=== PATIENT | female | born 1945 | race Caucasian/White ===

== ENCOUNTER → 2017-07-02 | Outpatient (CLI) | payer OTHER, MEDICARE | LOC: FIMAGING 12:25 | PROVIDERS: ATTEND Obstetrics & Gynecology Gynecology | DX: Z12.31 Encounter for screening mammogram for malignant neoplasm of breast (principal); Z80.3 Family history of malignant neoplasm of breast | CPT/HCPCS: G0202 ==

== ENCOUNTER 2018-03-26 11:47 | Emergency (ER) | payer OTHER, MEDICARE ==
--- NOTE | 2018-03-26 12:02 | CPEKG ---
Heart Rate: 82 RR Interval: 732 P-R Interval: 160 QRSD Interval: 104 QT Interval: 428 QTC Interval: 500 P [place]: 44 QRS [place]: 35 T Wave [place]: -29 EKG Severity - BORDERLINE ECG - EKG Impression: SINUS RHYTHM EKG Impression: BORDERLINE T ABNORMALITIES, INFERIOR LEADS EKG Impression: BORDERLINE PROLONGED QT INTERVAL Electronically Signed By: Naty Minor 26-Mar-2018 14:53:20
[2018-03-26 12:22] LABS: PLATELET COUNT 247 10^3/uL (150-400)
[2018-03-26] MEDS ORDERED: ONDANSETRON 4 MG/2 ML VIAL IVP ONE (12:40)
--- NOTE | 2018-03-26 12:44 | EDPHY ---
H & P Time Seen by Provider: 03/26/18 12:11 HPI/ROS: CHIEF COMPLAINT: Dizziness HISTORY OF PRESENT ILLNESS: 72-year-old female with a history of takotsubo syndrome presents with dizziness. She was in the yoga just prior to arrival, began to feel nauseated and dizzy. She then became diaphoretic and thought that she might faint. She laid down and eventually felt well enough to sit up and have something to drink. The dizziness has resolved. She continues to have mild nausea and abdominal cramping. She has had abdominal cramping over the last week and attributes it to irritable bowel syndrome. No chest pain or shortness of breath. REVIEW OF SYSTEMS: complete 10 point ROS negative except at noted in the HPI Past Medical/Surgical History: takotsubo syndrome 10 years ago, had chest pain and shortness of breath at that time Social History: No recent alcohol Smoking Status: Never smoked Physical Exam: General Appearance: Alert, pleasant Eyes: Pupils equal and round, no conjunctival pallor ENT, Mouth: Mucous membranes moist Neck: Normal inspection Respiratory: Lungs are clear to auscultation Cardiovascular: Regular rate and rhythm Gastrointestinal: Abdomen is soft and nontender Neurological: A&O, nonfocal exam Skin: Warm and dry, no rash Extremities: Nontender, no pedal edema Psychiatric: Mood and affect normal Constitutional: Initial Vital Signs Temperature (C) 36.4 C 03/26/18 11:50 Heart Rate 82 03/26/18 11:50 Respiratory Rate 18 03/26/18 11:50 Blood Pressure 150/85 H 03/26/18 11:50 O2 Sat (%) 99 03/26/18 11:50 O2 Delivery Mode Room Air Allergies/Adverse Reactions: lisinopril Allergy (Intermediate, Verified 11/10/13 18:16) cough nitroglycerin [Nitroglycerin] Allergy (Intermediate, Verified 07/09/12 10:54) DECREASE BLOOD PRESSURE morphine [Morphine] Allergy (Mild, Verified 11/10/13 18:16) decrease BP ENVIRONMENTAL Allergy (Mild, Uncoded 07/09/12 10:54) NASAL CONGESTION/SNEEZING Home Medications: Medication Instructions Recorded Atorvastatin Calcium [Lipitor 10 11/10/13 mg (RX)] Estradiol [Estradiol 1 MG (RX)] 11/10/13 Medical Decision Making - Diagnostics EKG Interpretation: EKG interpreted by me reveals normal sinus rhythm, rate 82, diffuse nonspecific ST segment changes.. Interpretation: Borderline EKG. Similar to EKG dated . ED Course/Re-evaluation: This patient presents after a near syncopal episode. She is currently feeling better after the episode though continues to have some nausea. IV normal saline and Zofran 4 mg IV given. 1:25 p.m.-the patient continues to be asymptomatic. 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 Most likely vasovagal episode. Warning signs discussed. She ambulated throughout the emergency department with a stable gait and denies dizziness. She will follow up with primary care physician. Differential Diagnosis: Differential diagnosis includes though is not limited to cardiac dysrhythmia, CVA, TIA, GI bleed, sepsis, hypoglycemia. - Data Points Laboratory Results: Laboratory Results 03/26/18 12:06 03/26/18 12:06 03/26/18 03/26/18 12:06 12:06 WBC 9.04 10^3/uL 10^3/uL (3.80-9.50) RBC 4.51 10^6/uL 10^6/uL (4.18-5.33) Hgb 14.6 g/dL g/dL (12.6-16.3) Hct 42.4 % % (38.0-47.0) MCV 94.0 fL fL (81.5-99.8) MCH 32.4 pg pg (27.9-34.1) MCHC 34.4 g/dL g/dL (32.4-36.7) RDW 13.0 % % (11.5-15.2) Plt Count 247 10^3/uL 10^3/uL (150-400) MPV 10.2 fL fL (8.7-11.7) Neut % (Auto) 51.0 % % (39.3-74.2) Lymph % (Auto) 37.3 % % (15.0-45.0) [place] % (Auto) 9.2 % % (4.5-13.0) Eos % (Auto) 1.7 % % (0.6-7.6) Baso % (Auto) 0.6 % % (0.3-1.7) Nucleat RBC Rel Count 0.0 % % (0.0-0.2) Absolute Neuts (auto) 4.62 10^3/uL 10^3/uL (1.70-6.50) Absolute Lymphs (auto) 3.37 10^3/uL H 10^3/uL (1.00-3.00) Absolute Monos (auto) 0.83 10^3/uL H 10^3/uL (0.30-0.80) Absolute Eos (auto) 0.15 10^3/uL 10^3/uL (0.03-0.40) Absolute Basos (auto) 0.05 10^3/uL 10^3/uL (0.02-0.10) Absolute Nucleated RBC 0.00 10^3/uL 10^3/uL (0-0.01) Immature Gran % 0.2 % % (0.0-1.1) Immature Gran # 0.02 10^3/uL 10^3/uL (0.00-0.10) Sodium 140 mEq/L mEq/L (135-145) Potassium 3.7 mEq/L mEq/L (3.5-5.2) Chloride 106 mEq/L mEq/L (97-110) Carbon Dioxide 23 mEq/l mEq/l (22-31) Anion Gap 11 mEq/L mEq/L (8-16) BUN 15 mg/dL mg/dL (7-23) Creatinine 0.7 mg/dL mg/dL (0.6-1.0) Estimated GFR > 60 Glucose 102 mg/dL H mg/dL (70-100) Calcium 9.3 mg/dL mg/dL (8.5-10.4) Troponin I < 0.012 ng/mL ng/mL (0.000-0.034) Medications Given: Discontinued Medications Ondansetron HCl (Zofran) 4 mg IVP EDNOW ONE Stop: 03/26/18 12:41 Last Admin: 03/26/18 12:47 Dose: 4 mg Departure - Departure Disposition: Home, Routine, Self-Care Clinical Impression: Near syncope Condition: Good Instructions: Near Syncope (ED) Additional Instructions: Return for recurrent symptoms or any concerns. Referrals: Petra Bradford MD [Primary Care Provider] - 2-3 days, call for appt.
[2018-03-26 13:42] VITALS: BP 122/85
== END 2018-03-26 13:39 | disposition home or self-care (01) ==
DX: R55 Syncope and collapse (principal)
CPT/HCPCS: 93005; 96374; 99284; J2405